=== PATIENT | female | born 2000 | race African-American/Black ===

== ENCOUNTER 2023-04-18 09:41 | Emergency (ER) | payer MEDICAID ==
[~2023-04-18] VITALS: Ht 162.6 cm; Wt 61.0 kg
[2023-04-18 09:45] VITALS: BP 112/76; PULSE 114; RESP 12; TEMP 99.8; O2SAT 98
[2023-04-18] MEDS ORDERED: ACET-2708 MT (10:31)
[2023-04-18] MEDS ORDERED: GUAI600T26 MT (10:31)
[2023-04-18] MEDS: IBUPROFEN 400MG TABLET PO ONE (10:51)
[2023-04-18] MEDS: ACETAMINOPHEN 325MG TABLET PO ONE (10:51)
== END 2023-04-18 14:03 | disposition home or self-care (01) ==
LOC: ER 09:41
DX: B34.9 Viral infection, unspecified (principal); R51.9 Headache, unspecified; Z20.822 Contact with and (suspected) exposure to COVID-19
CPT/HCPCS: 87426; 87804; 99283

== ENCOUNTER 2023-10-30 14:39 | Emergency (ER) | payer MEDICAID ==
[~2023-10-30] VITALS: Ht 162.6 cm; Wt 61.0 kg
[~2023-10-30 14:39] MED LIST: ACET-2708 MT; GUAI600T26 MT
[2023-10-30 14:44] VITALS: BP 128/73; PULSE 90; RESP 16; TEMP 98.2; O2SAT 100
[2023-10-30] MEDS ORDERED: POLY15DR31 RIGHTEYE (15:35)
== END 2023-10-30 16:44 | disposition home or self-care (01) ==
LOC: ER 14:39
DX: S05.11XA Contusion of eyeball and orbital tissues, right eye, initial encounter (principal); X58.XXXA Exposure to other specified factors, initial encounter; Y93.89 Activity, other specified; Y92.89 Other specified places as the place of occurrence of the external cause; Y99.8 Other external cause status
CPT/HCPCS: 99282; 99283